=== PATIENT | male | born 1970 | race Caucasian/White ===

== ENCOUNTER 2020-08-29 17:32 | Inpatient (IN) | payer MEDICAID ==
[~2020-08-29] VITALS: Ht 180.3 cm; Wt 117.8 kg
[2020-08-29 19:00] LABS: Basophils # (auto) 0.1 10 ^3/uL (0-0.2); Basophils % (auto) 0.9 % (0.0-2.0); Eosinophils # (auto) 0.3 10 ^3/uL (0-0.8); Eosinophils % (auto) 3.2 % (0.0-7.0); Hemoglobin 16.4 g/dL (13.5-17.5); Lymphocytes # (auto) 2.3 10 ^3/uL (0.4-5.4); Lymphocytes % (auto) 27.8 % (10.0-50.0); Mean Corpuscular Hemoglobin 29.5 pg (28.0-32.0); Mean Corpuscular Hgb Conc. 34.1 g/dL (32.0-36.0); Mean Corpuscular Volume 86.7 fL (80.0-100.0); Monocytes # (auto) 0.7 10 ^3/uL (0-1.3); Monocytes % (auto) 9.1 % (0.0-12.0); Neutrophils # (auto) 4.8 10 ^3/uL (1.6-8.6); Nucleated Red Blood Cells % 0.2 %; Platelet Count (auto) 199 10^3/uL (140-450); Red Blood Cells 5.54 10^6/uL (4.5-5.90); Red Cell Distribution Width 13.5 % (11.8-14.3); White Blood Cell 8.2 10^3/uL (4.4-10.8)
[2020-08-29 19:17] LABS: Albumin 3.7 g/dL (3.4-5.0); Anion Gap 4 (5-15); Blood Urea Nitrogen 13 mg/dL (7-18); Calcium 8.8 mg/dL (8.5-10.1); Carbon Dioxide 29 mmol/L (21-32); Chloride 108 mmol/L (98-107); Glucose 89 mg/dL (74-106); Potassium 4.4 mmol/L (3.5-5.1); Sodium 141 mmol/L (136-145)
[2020-08-29 19:22] LABS: Alanine Aminotransferase 101 U/L (16-61); Alkaline Phosphatase 83 U/L (45-117); Aspartate Aminotransferase 43 U/L (15-37); BUN/Creatinine Ratio 11.3; Bilirubin, Total 1.2 mg/dL (0.2-1.0); GFR African American 86 mL/min; GFR Non-African American 71 mL/min; Total Protein 7.5 g/dL (6.4-8.2)
[2020-08-29 19:26] LABS: INR 0.99 (0.9-1.15); Partial Thromboplastin Time 30.9 sec (23.0-31.2)
[2020-08-29] MEDS ORDERED: MORPHINE SULF INJ 2 MG/ML SYRINGE 1ML IV ONE (20:30)
[2020-08-29] MEDS ORDERED: ONDANSETRON HCL 4 MG/2 ML VIAL IV ONE (20:30)
[2020-08-29] MEDS ORDERED: ONDANSETRON HCL 4 MG/2 ML VIAL IV PRN (22:00)
[2020-08-29] MEDS ORDERED: ATORVASTATIN 20 MG TAB PO SCH (22:00)
[2020-08-29] MEDS ORDERED: NITROGLYCERIN 0.4 MG SL TAB SL PRN (22:00)
[2020-08-29] MEDS ORDERED: ACETAMINOPHEN 325 MG TAB PO PRN (22:00)
[2020-08-29] MEDS ORDERED: TEMAZEPAM 15 MG CAP PO PRN (22:00)
[2020-08-29] MEDS: FAMOTIDINE 20 MG TAB PO SCH (22:16)
[2020-08-29 22:32] LABS: Cholesterol 172 mg/dL (< 200)
[2020-08-29 22:36] LABS: HDL Cholesterol 31 mg/dL (40-59); LDL Cholesterol 125 mg/dL (< 100); Triglycerides 183 mg/dL (< 150)
[2020-08-29 23:30] VITALS: BP 135/90
[2020-08-30] MEDS: MORPHINE SULF INJ 2 MG/ML SYRINGE 1ML IV PRN ×3 (00:22→20:01)
[2020-08-30] MEDS ORDERED: ALPR2TAB2 PO (02:05)
[2020-08-30 05:00] VITALS: BP 126/89
[2020-08-30 05:42] LABS: Basophils # (auto) 0 10 ^3/uL (0-0.2); Basophils % (auto) 0.5 % (0.0-2.0); Eosinophils # (auto) 0.2 10 ^3/uL (0-0.8); Eosinophils % (auto) 3.1 % (0.0-7.0); Hematocrit 44.7 % (41.0-53.0); Hemoglobin 15.1 g/dL (13.5-17.5); Lymphocytes # (auto) 1.9 10 ^3/uL (0.4-5.4); Lymphocytes % (auto) 28.3 % (10.0-50.0); Mean Corpuscular Hemoglobin 29.4 pg (28.0-32.0); Mean Corpuscular Hgb Conc. 33.8 g/dL (32.0-36.0); Mean Corpuscular Volume 87.1 fL (80.0-100.0); Monocytes # (auto) 0.6 10 ^3/uL (0-1.3); Monocytes % (auto) 8.4 % (0.0-12.0); Neutrophils % (auto) 59.7 % (37.0-80.0); Nucleated Red Blood Cells % 0.2 %; Platelet Count (auto) 170 10^3/uL (140-450); Red Blood Cells 5.13 10^6/uL (4.5-5.90); Red Cell Distribution Width 13.9 % (11.8-14.3); White Blood Cell 6.8 10^3/uL (4.4-10.8)
[2020-08-30 05:50] LABS: BUN/Creatinine Ratio 12.8; Calcium 8.8 mg/dL (8.5-10.1); Potassium 4.7 mmol/L (3.5-5.1)
[2020-08-30] MEDS ORDERED: ADENOSINE 102 MG in GIVE UN-DILUTED 0 ML IV STA (08:42)
[2020-08-30 09:00] VITALS: BP 135/88
[2020-08-30] MEDS: FAMOTIDINE 20 MG TAB PO SCH ×2 (09:36→21:51)
[2020-08-30] MEDS: ASPirin 81 mg TAB PO SCH (09:36)
[2020-08-30] MEDS: METOPROLOL TARTRATE 25 MG TAB PO SCH ×2 (11:00→21:51)
[2020-08-30 13:00] VITALS: BP 142/93
[2020-08-30] MEDS ORDERED: OPTISON 3ml Vial for INJ IV ONE (16:30)
[2020-08-30 16:54] VITALS: BP 133/97
[2020-08-30 21:48] VITALS: BP 132/81
[2020-08-30] MEDS: ATORVASTATIN 20 MG TAB PO SCH (21:50)
[2020-08-31 04:43] VITALS: BP 119/70
[2020-08-31] MEDS: MORPHINE SULF INJ 2 MG/ML SYRINGE 1ML IV PRN (05:36)
[2020-08-31 05:58] LABS: Alcohol, Urine < 3.0 mg/dL (0-10); Amphetamine Screen, Urine NEGATIVE (NEGATIVE); Barbiturate Scree,Urine NEGATIVE (NEGATIVE); Benzodiazephine Screen, Urine POSITIVE (NEGATIVE); Cannabinoid Screen, Urine NEGATIVE (NEGATIVE); Cocaine Screen, Urine NEGATIVE (NEGATIVE); Opiate Scree,Urine NEGATIVE (NEGATIVE); Phencyclidine Screen, Urine NEGATIVE (NEGATIVE)
[2020-08-31 06:55] LABS: Basophils # (auto) 0.1 10 ^3/uL (0-0.2); Basophils % (auto) 0.9 % (0.0-2.0); Eosinophils # (auto) 0.2 10 ^3/uL (0-0.8); Eosinophils % (auto) 3.6 % (0.0-7.0); Hemoglobin 15.4 g/dL (13.5-17.5); Lymphocytes # (auto) 1.4 10 ^3/uL (0.4-5.4); Lymphocytes % (auto) 22.3 % (10.0-50.0); Mean Corpuscular Hemoglobin 29.5 pg (28.0-32.0); Mean Corpuscular Hgb Conc. 34.3 g/dL (32.0-36.0); Monocytes # (auto) 0.5 10 ^3/uL (0-1.3); Monocytes % (auto) 8.6 % (0.0-12.0); Neutrophils % (auto) 64.6 % (37.0-80.0); Nucleated Red Blood Cells % 0.8 %; Platelet Count (auto) 168 10^3/uL (140-450); Red Blood Cells 5.24 10^6/uL (4.5-5.90); Red Cell Distribution Width 13.2 % (11.8-14.3); White Blood Cell 6.2 10^3/uL (4.4-10.8)
[2020-08-31 07:07] LABS: INR 1.03 (0.9-1.15); Partial Thromboplastin Time 30.5 sec (23.0-31.2)
[2020-08-31 07:08] LABS: BUN/Creatinine Ratio 19.5; Calcium 8.3 mg/dL (8.5-10.1); Potassium 4.2 mmol/L (3.5-5.1)
[2020-08-31 07:35] LABS: Urine Bacteria NONE SEEN /hpf (None Seen); Urine Blood Negative /uL (Negative); Urine Specific Gravity 1.022 (1.001-1.035); Urine WBC 1 /hpf (0 - 3)
[2020-08-31 08:52] VITALS: BP 135/94
[2020-08-31] MEDS ORDERED: SODIUM CHL 0.9% 0 ML ONE (09:55)
[2020-08-31] MEDS ORDERED: fentaNYL CITRATE 100 MCG/2 ML VL ONE (09:55)
[2020-08-31] MEDS ORDERED: VERAPAMIL 2.5MG/ML INJ 2ML VIAL IV ONE (09:55)
[2020-08-31] MEDS ORDERED: MIDAZOLAM HCL 1MG/1ML-2 ML VIAL ONE ×2 (09:55→10:18)
[2020-08-31] MEDS ORDERED: HEPARIN SODIUM (PORCINE) 5000 UNITS/ML 1ML VIAL ONE (09:55)
[2020-08-31] MEDS ORDERED: ANGIOMAX 250 MG VIAL IV ONE (09:55)
[2020-08-31] MEDS ORDERED: IOHEXOL 350 MG/ML 100ML IJ ONE (09:56)
[2020-08-31] MEDS ORDERED: LIDOCAINE 2%HCL (LOCAL ANESTH.) INJ 20ML MDV ONE (09:56)
[2020-08-31] MEDS: ASPirin 81 mg TAB PO SCH (10:00)
[2020-08-31] MEDS: FAMOTIDINE 20 MG TAB PO SCH ×2 (10:00→21:35)
[2020-08-31] MEDS: METOPROLOL TARTRATE 25 MG TAB PO SCH ×2 (10:00→21:35)
[2020-08-31 13:00] VITALS: BP 124/78
[2020-08-31 17:00] VITALS: BP 129/96
[2020-08-31] MEDS: ATORVASTATIN 20 MG TAB PO SCH (21:35)
[2020-08-31 21:58] VITALS: BP 134/81
[2020-09-01 05:00] VITALS: BP 115/78
[2020-09-01 09:00] VITALS: BP 134/98
[2020-09-01] MEDS: FAMOTIDINE 20 MG TAB PO SCH (09:16)
[2020-09-01] MEDS: METOPROLOL TARTRATE 25 MG TAB PO SCH (09:16)
[2020-09-01] MEDS ORDERED: ASPirin 81 mg TAB PO SCH (10:00)
[2020-09-01 12:49] VITALS: BP 142/94
[2020-09-01 13:25] VITALS: BP 142/94
== END 2020-09-01 15:30 | disposition home or self-care (01) | DRG 192 ==
LOC: ER 17:32 → TELE 21:58 → TELE-WESTW 23:23
PROVIDERS: ADMIT Nurse Practitioner; ATTEND Internal Medicine Nephrology
PROC: 4A023N7 Measurement of Cardiac Sampling and Pressure, Left Heart, Percutaneous Approach (ICD-10-PCS; principal; 2020-08-31)
PROC: B215YZZ Fluoroscopy of Left Heart using Other Contrast (ICD-10-PCS; 2020-08-31)
PROC: B211YZZ Fluoroscopy of Multiple Coronary Arteries using Other Contrast (ICD-10-PCS; 2020-08-31)
DX: R07.89 Other chest pain (principal); K76.0 Fatty (change of) liver, not elsewhere classified; E66.9 Obesity, unspecified; R55 Syncope and collapse; E78.5 Hyperlipidemia, unspecified; Z68.37 Body mass index [BMI] 37.0-37.9, adult; Z82.49 Family history of ischemic heart disease and other diseases of the circulatory system; Z83.3 Family history of diabetes mellitus; Z87.442 Personal history of urinary calculi; F32.9 Major depressive disorder, single episode, unspecified; Z87.891 Personal history of nicotine dependence; R74.01 Elevation of levels of liver transaminase levels; Z20.822 Contact with and (suspected) exposure to COVID-19; I12.9 Hypertensive chronic kidney disease with stage 1 through stage 4 chronic kidney disease, or unspecified chronic kidney disease; N18.2 Chronic kidney disease, stage 2 (mild)
CPT/HCPCS: 36415; 70450; 71046; 76705; 78452; 80048; 80053; 80061; 80307; 80320; 81001; 83036; 83880; 84443; 84484; 85025; 85379; 85610; 85730; 87426; 93005; 93017; 93306; 93458; 93886; 95819; 96374; 96375; 99152; G0378; J0153; J2250; J2405; Q9956

== ENCOUNTER → 2020-10-23 | Outpatient (CLI) | payer MEDICAID ==
[~2020-10-23] MED LIST: ALPR2TAB2 PO
== END | disposition home or self-care (01) ==
LOC: LAB 08:54
PROVIDERS: ATTEND Internal Medicine
DX: Z12.11 Encounter for screening for malignant neoplasm of colon (principal); I10 Essential (primary) hypertension; E78.5 Hyperlipidemia, unspecified
CPT/HCPCS: 36415; 82306; 84153; 85652

== ENCOUNTER → 2021-06-06 | Outpatient (CLI) | payer MEDICAID ==
[2021-06-06 13:10] LABS: Albumin 3.5 g/dL (3.4-5.0); BUN/Creatinine Ratio 13.1; Calcium 8.7 mg/dL (8.5-10.1); Potassium 3.8 mmol/L (3.5-5.1)
[2021-06-06 13:13] LABS: Bilirubin, Total 1.6 mg/dL (0.2-1.0); Total Protein 7.5 g/dL (6.4-8.2)
== END | disposition home or self-care (01) ==
LOC: LAB 09:41
PROVIDERS: ATTEND Internal Medicine
DX: J44.9 Chronic obstructive pulmonary disease, unspecified (principal); E78.5 Hyperlipidemia, unspecified; R73.9 Hyperglycemia, unspecified
CPT/HCPCS: 36415; 80053; 83036; 84443

== ENCOUNTER → 2021-07-24 | Outpatient (CLI) | payer MEDICAID | END | disposition home or self-care (01) | LOC: LAB 07:07 | PROVIDERS: ATTEND Internal Medicine Pulmonary Disease | DX: Z01.812 Encounter for preprocedural laboratory examination (principal); Z20.822 Contact with and (suspected) exposure to COVID-19; R06.02 Shortness of breath; R06.00 Dyspnea, unspecified | CPT/HCPCS: 36415 ==

== ENCOUNTER → 2021-07-24 | Outpatient (CLI) | payer MEDICAID ==
[~2021-07-24] MED LIST changes: +ALBUTEROL SULF 2.5 MG/0.5ML(0.5%) NEB SOLN ONE
== END | disposition home or self-care (01) ==
LOC: RT 09:19
PROVIDERS: ATTEND Internal Medicine Pulmonary Disease
DX: J44.9 Chronic obstructive pulmonary disease, unspecified (principal)
CPT/HCPCS: 94060; 94727; 94729

== ENCOUNTER → 2022-02-12 | Outpatient (CLI) | payer MEDICAID ==
[~2022-02-12] MED LIST changes: -ALBUTEROL SULF 2.5 MG/0.5ML(0.5%) NEB SOLN ONE
[2022-02-12 11:39] LABS: Cholesterol 211 mg/dL (< 200)
[2022-02-12 11:42] LABS: HDL Cholesterol 35 mg/dL (40-59); LDL Cholesterol 153 mg/dL (< 100); Triglycerides 155 mg/dL (< 150)
== END | disposition home or self-care (01) ==
LOC: LAB 10:04
PROVIDERS: ATTEND Internal Medicine
DX: E55.9 Vitamin D deficiency, unspecified (principal); R73.03 Prediabetes; E78.5 Hyperlipidemia, unspecified
CPT/HCPCS: 36415; 80061; 82043; 82306; 83036; 84403

== ENCOUNTER → 2022-04-28 | Outpatient (CLI) | payer MEDICAID | END | disposition home or self-care (01) | LOC: XYW 08:27 | PROVIDERS: ATTEND Internal Medicine Pulmonary Disease | DX: I08.2 Rheumatic disorders of both aortic and tricuspid valves (principal); R06.02 Shortness of breath | CPT/HCPCS: 93306 ==

== ENCOUNTER → 2022-09-26 | Day surgery (SDC) | payer MEDICAID ==
[2022-09-24 09:46] LABS: Basophils # (auto) 0.1 10 ^3/uL (0-0.2); Basophils % (auto) 1.1 % (0.0-2.0); Eosinophils # (auto) 0.2 10 ^3/uL (0-0.8); Eosinophils % (auto) 4.3 % (0.0-7.0); Hematocrit 43.4 % (41.0-53.0); Hemoglobin 14.7 g/dL (13.5-17.5); Lymphocytes # (auto) 1.6 10 ^3/uL (0.4-5.4); Lymphocytes % (auto) 27.4 % (10.0-50.0); Mean Corpuscular Hemoglobin 28.5 pg (28.0-32.0); Mean Corpuscular Hgb Conc. 33.8 g/dL (32.0-36.0); Mean Corpuscular Volume 84.5 fL (80.0-100.0); Monocytes # (auto) 0.5 10 ^3/uL (0-1.3); Monocytes % (auto) 8.6 % (0.0-12.0); Neutrophils # (auto) 3.3 10 ^3/uL (1.6-8.6); Neutrophils % (auto) 58.6 % (37.0-80.0); Nucleated Red Blood Cells % 0.3 %; Red Blood Cells 5.14 10^6/uL (4.5-5.90); Red Cell Distribution Width 14.1 % (11.8-14.3); White Blood Cell 5.7 10^3/uL (4.4-10.8)
[2022-09-24 10:02] LABS: INR 1.03 (0.9-1.15); Partial Thromboplastin Time 32.7 sec (24.6-33.4)
[2022-09-24 10:30] LABS: Albumin 3.8 g/dL (3.4-5.0)
[2022-09-24 10:33] LABS: BUN/Creatinine Ratio 7.8 (10.0-20.0); Bilirubin, Total 1.3 mg/dL (0.2-1.0); Total Protein 7.2 g/dL (6.4-8.2)
[~2022-09-26] VITALS: Ht 177.8 cm; Wt 97.5 kg
[~2022-09-26] MED LIST changes: +ALBU108A14 IN; +ALPR1TAB7 PO; +ATOR10TA PO; +DexAMETHasone SOD PHOS 10MG/1ML VIAL INJ ONE; +FLUT1AER17 IN; +IPRA0.00 IN; +LAMO100T44 PO; +MEPERIDINE HCL (25 MG/ML) 1ML VIAL ONE; +MIDAZOLAM HCL 2MG/2ML 2ml VIAL (1mg/ml) ONE; +PANT40TA2 PO; +PROPOFOL 10 MG/ML 20 ML IV ONE; +QUET50TA PO; +SEMA4INJ SC; +VALS320T15 PO; +fentaNYL CITRATE 100 MCG/2 ML VL ONE
[2022-09-26 15:30] VITALS: BP 117/71
== END | disposition home or self-care (01) ==
LOC: GI 13:02
PROVIDERS: ATTEND Internal Medicine Gastroenterology
DX: R19.7 Diarrhea, unspecified (principal); K63.5 Polyp of colon; K62.1 Rectal polyp; K64.8 Other hemorrhoids; I10 Essential (primary) hypertension; F41.9 Anxiety disorder, unspecified; Z80.0 Family history of malignant neoplasm of digestive organs; Z83.3 Family history of diabetes mellitus; Z87.891 Personal history of nicotine dependence; Z79.899 Other long term (current) drug therapy; Z98.890 Other specified postprocedural states
CPT/HCPCS: 36415; 45380; 45385; 80053; 85025; 85610; 85730; J1100; J2175; J2250; J2704; J3010; J7030

== ENCOUNTER 2022-10-03 17:21 | Inpatient (IN) | payer MEDICAID ==
[~2022-10-03] VITALS: Ht 180.3 cm; Wt 99.6 kg
[~2022-10-03 17:21] MED LIST changes: -DexAMETHasone SOD PHOS 10MG/1ML VIAL INJ ONE; -MEPERIDINE HCL (25 MG/ML) 1ML VIAL ONE; -MIDAZOLAM HCL 2MG/2ML 2ml VIAL (1mg/ml) ONE; -PROPOFOL 10 MG/ML 20 ML IV ONE; -fentaNYL CITRATE 100 MCG/2 ML VL ONE
[2022-10-03 18:14] LABS: Basophils # (auto) 0 10 ^3/uL (0-0.2); Basophils % (auto) 0.4 % (0.0-2.0); Eosinophils # (auto) 0.3 10 ^3/uL (0-0.8); Eosinophils % (auto) 3.2 % (0.0-7.0); Hematocrit 42.4 % (41.0-53.0); Hemoglobin 14.4 g/dL (13.5-17.5); Lymphocytes # (auto) 1.9 10 ^3/uL (0.4-5.4); Lymphocytes % (auto) 17.9 % (10.0-50.0); Mean Corpuscular Hemoglobin 28.7 pg (28.0-32.0); Mean Corpuscular Hgb Conc. 34.1 g/dL (32.0-36.0); Mean Corpuscular Volume 84.1 fL (80.0-100.0); Monocytes # (auto) 0.9 10 ^3/uL (0-1.3); Monocytes % (auto) 7.9 % (0.0-12.0); Neutrophils # (auto) 7.6 10 ^3/uL (1.6-8.6); Neutrophils % (auto) 70.6 % (37.0-80.0); Nucleated Red Blood Cells % 0.2 %; Red Blood Cells 5.04 10^6/uL (4.5-5.90); White Blood Cell 10.7 10^3/uL (4.4-10.8)
[2022-10-03 18:26] LABS: Albumin 3.4 g/dL (3.4-5.0); Calcium 8.9 mg/dL (8.5-10.1); Potassium 3.6 mmol/L (3.5-5.1)
[2022-10-03 18:31] LABS: BUN/Creatinine Ratio 11.7 (10.0-20.0); Bilirubin, Total 1.4 mg/dL (0.2-1.0); Total Protein 7.4 g/dL (6.4-8.2)
[2022-10-03 18:44] LABS: Urine Bacteria FEW /hpf (None Seen); Urine Blood Negative /uL (Negative); Urine Hyaline Cast FEW /lpf (0 - 2); Urine Mucus FEW (None Seen); Urine Specific Gravity 1.023 (1.001-1.035); Urine WBC 13 /hpf (0 - 3)
[2022-10-03] MEDS ORDERED: MORPHINE SULFATE 4 MG/ML SYR/VIAL IV ONE (18:45)
[2022-10-03] MEDS ORDERED: ONDANSETRON HCL 4 MG/2 ML VIAL IV ONE (18:45)
[2022-10-03] MEDS ORDERED: cefTRIAXone 1GM/50ML D5W 50 ML IV ONE (20:00)
[2022-10-03] MEDS ORDERED: HYDROmorphone HCL 2 MG/ML VL/or syr IV ONE (22:00)
[2022-10-03] MEDS ORDERED: ALBUTEROL SULF 2.5 MG/0.5ML(0.5%) NEB SOLN NEB PRN (22:45)
[2022-10-03] MEDS ORDERED: DOCUSATE SOD 100 MG CAP PO PRN (22:45)
[2022-10-03] MEDS ORDERED: IBUPROFEN 600 MG TAB PO PRN (22:45)
[2022-10-03] MEDS ORDERED: HYDROcodone-ACET 10/325MG TAB PO ONE (23:45)
[2022-10-04] MEDS ORDERED: MORPHINE SULFATE INJ 2 MG/ml SYRG IV PRN
[2022-10-04] MEDS ORDERED: NITROGLYCERIN 0.4 MG SL TAB SL PRN
[2022-10-04] MEDS: SODIUM CHLORIDE 0.9% 1,000 ML IV SCH ×2 (00:47→03:43)
[2022-10-04 03:00] VITALS: BP 74/40
[2022-10-04] MEDS: SODIUM CHLORIDE 0.9% 500 ML IV ONE ×2 (03:10→03:38)
[2022-10-04] MEDS ORDERED: MIDODRINE HCL 10 MG TAB PO ONE (03:15)
[2022-10-04] MEDS: POTASSIUM CHL 20MEQ/100ML 100 ML IV SCH ×2 (03:16→03:41)
[2022-10-04] MEDS ORDERED: NOREPINEPHRINE 8 MG/250ML KIT 250 ML IV SCH (04:15)
[2022-10-04 04:46] LABS: Basophils # (auto) 0 10 ^3/uL (0-0.2); Basophils % (auto) 0.3 % (0.0-2.0); Eosinophils # (auto) 0.1 10 ^3/uL (0-0.8); Eosinophils % (auto) 1.2 % (0.0-7.0); Hematocrit 37.9 % (41.0-53.0); Hemoglobin 12.8 g/dL (13.5-17.5); Lymphocytes % (auto) 11.3 % (10.0-50.0); Mean Corpuscular Hemoglobin 28.7 pg (28.0-32.0); Mean Corpuscular Hgb Conc. 33.7 g/dL (32.0-36.0); Mean Corpuscular Volume 85.1 fL (80.0-100.0); Monocytes # (auto) 0.9 10 ^3/uL (0-1.3); Monocytes % (auto) 10.7 % (0.0-12.0); Neutrophils # (auto) 6.6 10 ^3/uL (1.6-8.6); Neutrophils % (auto) 76.5 % (37.0-80.0); Red Blood Cells 4.45 10^6/uL (4.5-5.90); Red Cell Distribution Width 13.8 % (11.8-14.3); White Blood Cell 8.6 10^3/uL (4.4-10.8)
[2022-10-04 04:55] LABS: Albumin 2.9 g/dL (3.4-5.0); BUN/Creatinine Ratio 7.9 (10.0-20.0); Calcium 8.5 mg/dL (8.5-10.1); Potassium 3.4 mmol/L (3.5-5.1)
[2022-10-04 04:58] LABS: Total Protein 6.4 g/dL (6.4-8.2)
[2022-10-04] MEDS: ONDANSETRON HCL 4 MG/2 ML VIAL IV PRN ×3 (07:56→18:29)
[2022-10-04] MEDS: HYDROmorphone HCL 2 MG/ML VL/or syr IV PRN ×3 (07:57→18:30)
[2022-10-04] MEDS: cefTRIAXone 1GM/50ML D5W 50 ML IV SCH (09:00)
[2022-10-04] MEDS ORDERED: SODIUM CHLORIDE 0.9% 1,000 ML IV ONE (14:15)
[2022-10-04] MEDS: TAMSULOSIN HYDROCHLORIDE 0.4 MG CAP PO SCH (18:29)
[2022-10-04] MEDS: TEMAZEPAM 15 MG CAP PO PRN (21:11)
[2022-10-05 06:26] LABS: Basophils # (auto) 0 10 ^3/uL (0-0.2); Basophils % (auto) 0.6 % (0.0-2.0); Eosinophils # (auto) 0.3 10 ^3/uL (0-0.8); Eosinophils % (auto) 4.8 % (0.0-7.0); Hematocrit 36.7 % (41.0-53.0); Hemoglobin 12.8 g/dL (13.5-17.5); Lymphocytes # (auto) 1.3 10 ^3/uL (0.4-5.4); Lymphocytes % (auto) 20.5 % (10.0-50.0); Mean Corpuscular Hemoglobin 29.3 pg (28.0-32.0); Mean Corpuscular Volume 83.8 fL (80.0-100.0); Monocytes # (auto) 0.7 10 ^3/uL (0-1.3); Monocytes % (auto) 11.2 % (0.0-12.0); Neutrophils # (auto) 4.1 10 ^3/uL (1.6-8.6); Neutrophils % (auto) 62.9 % (37.0-80.0); Nucleated Red Blood Cells % 0.1 %; Red Blood Cells 4.38 10^6/uL (4.5-5.90); Red Cell Distribution Width 13.8 % (11.8-14.3); White Blood Cell 6.5 10^3/uL (4.4-10.8)
[2022-10-05 06:44] LABS: BUN/Creatinine Ratio 13.2 (10.0-20.0); Calcium 8.2 mg/dL (8.5-10.1); Phosphorus 2.4 mg/dL (2.5-4.90); Uric Acid 5.1 mg/dL (3.5-7.2)
[2022-10-05] MEDS: SODIUM CHLORIDE 0.9% 1,000 ML IV SCH (07:56)
[2022-10-05] MEDS: cefTRIAXone 1GM/50ML D5W 50 ML IV SCH (09:12)
[2022-10-05 15:54] VITALS: BP 108/63
[2022-10-05 17:00] VITALS: BP 108/63
[2022-10-05] MEDS: TAMSULOSIN HYDROCHLORIDE 0.4 MG CAP PO SCH (17:17)
[2022-10-05] MEDS: HYDROmorphone HCL 2 MG/ML VL/or syr IV PRN ×2 (17:19→21:22)
[2022-10-05 18:56] LABS: Urine Bacteria NONE SEEN /hpf (None Seen); Urine Blood 2+ /uL (Negative); Urine Mucus FEW (None Seen); Urine Specific Gravity 1.014 (1.001-1.035); Urine WBC 12 /hpf (0 - 3)
[2022-10-05 19:20] LABS: Protein, Urine 50.4 mg/dL (0.0-11.9)
[2022-10-05] MEDS: TEMAZEPAM 15 MG CAP PO PRN (21:18)
[2022-10-05 22:00] VITALS: BP 111/58
[2022-10-06] MEDS: SODIUM CHLORIDE 0.9% 1,000 ML IV SCH (03:54)
[2022-10-06] MEDS: HYDROmorphone HCL 2 MG/ML VL/or syr IV PRN ×3 (04:13→14:41)
[2022-10-06 05:00] VITALS: BP 143/68
[2022-10-06 07:30] VITALS: BP 111/75
[2022-10-06 09:00] VITALS: BP 111/75
[2022-10-06] MEDS: cefTRIAXone 1GM/50ML D5W 50 ML IV SCH (09:09)
[2022-10-06] MEDS ORDERED: TAM04C PO (12:44)
[2022-10-06] MEDS ORDERED: AUG875T PO (12:44)
[2022-10-06 13:00] VITALS: BP 136/76
[2022-10-06 13:49] VITALS: BP 136/76
[2022-10-06 17:00] VITALS: BP 116/76
== END 2022-10-06 18:02 | disposition home or self-care (01) | DRG 720 ==
LOC: ER 17:21 → OVERFLOW 23:58 → TELE-WESTW 10-05 15:12
PROVIDERS: ADMIT Nurse Practitioner Family; ATTEND Internal Medicine
DX: A41.9 Sepsis, unspecified organism (principal); N17.0 Acute kidney failure with tubular necrosis; R65.21 Severe sepsis with septic shock; G92.8 Other toxic encephalopathy; N20.0 Calculus of kidney; I10 Essential (primary) hypertension; N39.0 Urinary tract infection, site not specified; F32.A Depression, unspecified; R26.81 Unsteadiness on feet; R34 Anuria and oliguria; R33.9 Retention of urine, unspecified; Z83.3 Family history of diabetes mellitus; Z79.899 Other long term (current) drug therapy; Z87.442 Personal history of urinary calculi; Z87.891 Personal history of nicotine dependence
CPT/HCPCS: 36415; 74176; 80048; 80053; 81001; 82570; 83605; 83690; 84100; 84156; 84300; 84550; 85025; 87081; 87086; 96365; 96375; G0378; J0696; J2405; J3480

== ENCOUNTER → 2022-10-08 | Outpatient (CLI) | payer MEDICAID ==
[~2022-10-08] MED LIST changes: -ALPR1TAB7 PO; +AUG875T PO; +TAM04C PO
== END | disposition home or self-care (01) ==
LOC: LAB 11:50
PROVIDERS: ATTEND Internal Medicine
DX: R07.9 Chest pain, unspecified (principal)
CPT/HCPCS: 36415; 84484; 85379

== ENCOUNTER → 2023-03-27 | Outpatient (CLI) | payer MEDICAID ==
[~2023-03-27] MED LIST changes: -TAM04C PO; +TAMS-35 PO; +VALS320T PO; -VALS320T15 PO
[2023-03-27 11:36] LABS: Anion Gap 6 (5-15); Carbon Dioxide 28 mmol/L (20-30); Chloride 104 mmol/L (98-107); Potassium 4.3 mmol/L (3.5-5.1); Sodium 138 mmol/L (136-145)
[2023-03-27 11:42] LABS: BUN/Creatinine Ratio 7.9 (10.0-20.0); Blood Urea Nitrogen 10 mg/dL (9-23); Glucose 97 mg/dL (74-106)
[2023-03-27 11:49] LABS: Creatinine, Urine 237.82 mg/dL (30.0-125.0)
[2023-03-28 06:06] LABS: PSA Free 0.69 ng/mL; Prostate Specific Antigen 4.9 ng/mL (0.0-4.0)
== END | disposition home or self-care (01) ==
LOC: LAB 10:46
PROVIDERS: ATTEND Internal Medicine
DX: E11.9 Type 2 diabetes mellitus without complications (principal)
CPT/HCPCS: 36415; 80048; 82043; 82570; 84153; 84154

== ENCOUNTER → 2023-07-09 | Outpatient (CLI) | payer MEDICAID ==
[2023-07-09 08:55] LABS: Basophils # (auto) 0.1 10 ^3/uL (0-0.2); Basophils % (auto) 0.8 % (0.0-2.0); Eosinophils # (auto) 0.2 10 ^3/uL (0-0.8); Eosinophils % (auto) 2.8 % (0.0-7.0); Hematocrit 44.4 % (41.0-53.0); Hemoglobin 14.8 g/dL (13.5-17.5); Lymphocytes # (auto) 1.5 10 ^3/uL (0.4-5.4); Lymphocytes % (auto) 24.7 % (10.0-50.0); Mean Corpuscular Hemoglobin 28.1 pg (28.0-32.0); Mean Corpuscular Hgb Conc. 33.4 g/dL (32.0-36.0); Mean Corpuscular Volume 84.2 fL (80.0-100.0); Monocytes # (auto) 0.4 10 ^3/uL (0-1.3); Monocytes % (auto) 7.3 % (0.0-12.0); Neutrophils # (auto) 3.9 10 ^3/uL (1.6-8.6); Neutrophils % (auto) 64.4 % (37.0-80.0); Nucleated Red Blood Cells % 0.3 %; Red Blood Cells 5.28 10^6/uL (4.5-5.90); Red Cell Distribution Width 14.2 % (11.8-14.3); White Blood Cell 6.1 10^3/uL (4.4-10.8)
[2023-07-09 09:23] LABS: Triglycerides 117 mg/dL (< 150)
[2023-07-09 09:24] LABS: LDL Cholesterol 161 mg/dL (< 100)
[2023-07-09 09:25] LABS: HDL Cholesterol 34 mg/dL (40-59)
[2023-07-09 09:26] LABS: Cholesterol 210 mg/dL (< 200)
[2023-07-10 08:06] LABS: PSA Free 0.64 ng/mL; Prostate Specific Antigen 5.4 ng/mL (0.0-4.0)
== END | disposition home or self-care (01) ==
LOC: LAB 08:28
PROVIDERS: ATTEND Internal Medicine
DX: E11.9 Type 2 diabetes mellitus without complications (principal); I10 Essential (primary) hypertension
CPT/HCPCS: 36415; 80061; 82306; 83036; 84153; 84154; 84443; 85025

== ENCOUNTER → 2023-08-07 | Outpatient (CLI) | payer MEDICAID ==
[2023-08-07 10:06] LABS: Albumin 4.3 g/dL (3.2-4.8); Bilirubin, Direct 0.3 mg/dL (<0.3); Total Protein 6.9 g/dL (5.7-8.2)
== END | disposition home or self-care (01) ==
LOC: LAB 09:19
PROVIDERS: ATTEND Internal Medicine
DX: E78.5 Hyperlipidemia, unspecified (principal)
CPT/HCPCS: 36415; 80076

== ENCOUNTER 2024-05-27 14:42 | Emergency (ER) | payer MEDICAID ==
[~2024-05-27] VITALS: Ht 152.4 cm; Wt 106.6 kg
[2024-05-27 15:10] VITALS: BP 141/97; PULSE 78; RESP 16; O2SAT 97
--- NOTE | 2024-05-27 15:22 | ED.PDOC ---
Musculoskeletal HPI Comments 54M presents to the ER w/ no prior Hx associated to the c/c of LE. Pt's reports on having LE swelling for 2 weeks on his right leg. Pt notes that he did go to his PCP and that they are worried about only his right LE is swollen. His PCP told him to go to the ER right now and get an US done just to make sure that he does not have a blood clot. Pt does have varicose veins. PMHx of Depression, HTN, and Kidney Stones. Social Hx of quit tobacco use 4 years ago and denies alcohol and substance use. Denies chills, fever, N/V/D, SOB, CP or other associated symptom's, modifiers, or recent injuries or sick contact at this time. Chief Complaint: Lower Extremity Time Seen by MD: 15:05 Primary Care Provider: EN Reviewed Notes: Nurses Notes, Medications, Allergies Allergies: Coded Allergies: Diphenhydramine (Verified Adverse Reaction, Mild, Restless legs and irritability, 10/05/22) Home Meds Active Scripts Amoxicillin & Pot Clavulanate (AUGMENTIN TABLET) 875 Mg Tb, 875 MG PO BID, #14 TAB Prov:KENYATTA SENA MD 10/06/22 Tamsulosin Hcl (Flomax) 0.4 Mg Cap, 1 CAP PO DAILY, #90 CAP 3 Refills Prov:KENYATTA SENA MD 10/06/22 Reported Medications Semaglutide (Ozempic) 4 Mg/3 Ml Inj, 4 MG SC QWEEKLY, INJ 09/24/22 Atorvastatin Calcium (Lipitor) 10 Mg Tab, 10 MG PO DAILY, TAB 09/24/22 Valsartan (Diovan) 320 Mg Tab, 160 MG PO DAILY, TAB 09/24/22 Pantoprazole Sodium Sesquihydr (Protonix) 40 Mg Tab, 40 MG PO DAILY, #30 TAB 09/24/22 Ipratropium-Albuterol (Ipratropium Ragan/Albut) 1 Soni Soni, 1 SONI IN, ML 09/24/22 Dpzqyylnzjp-Tthevqoyteju-Efjhn (Trelegy Ellipta 200-62.5-25 Mcg/INH) 1 Aer Aer, 1 AER IN, AER 09/24/22 Albuterol Sulfate (Proair Digihaler) 108 Mcg/Act Aer, 108 MCG IN, AER 09/24/22 Lamotrigine (Lamotrigine) 100 Mg Tab, 100 MG PO DAILY, TAB 09/24/22 Quetiapine Fumerate (Seroquel) 50 Mg Tab, 100 MG PO BID, TAB 09/24/22 Alprazolam (Xanax) 2 Mg Tab, 1 TAB PO TID PRN for ANXIETY, #90 TAB 08/30/20 Information Source: Patient, Spouse Mode of Arrival: Ambulatory Location: Right Extremity Location: Leg Timing: Weeks Prehospital treatment: None Severity: Moderate Able to Move Extremity: Yes Bear Weight: Limited Pain: Mild Hand Dominance: Right Mechanism: Unknown Circumstances: Unknown Onset of Symptoms: Spontaneous Symptoms: Swelling DVT Risk Factors: NONE Last Tetanus: Unknown Associated signs and symptoms: Swelling Past Medical History PAST MEDICAL HISTORY: Depression, HTN, Kidney Stones Surgical History: Denies all surgeries Family History Family History: Reviewed,noncontributory to illness, Unknown Social History Smoker: Non-Smoker, Quit Greater Than 1 Year Alcohol: Denies ETOH Use Drugs: Denies Drug Use Lives In: Home Constitutional: denies: chills, diaphoresis, fatigue, fever, malaise, sweats, weakness, others EENTM: denies: blurred vision, double vision, ear bleeding, ear discharge, ear drainage, ear pain, ear ringing, eye pain, eye redness, hearing loss, mouth pain, mouth swelling, nasal discharge, nose bleeding, nose congestion, nose pain, photophobia, tearing, throat pain, throat swelling, voice changes, others Respiratory: denies: cough, hemoptysis, orthopnea, SOB at rest, shortness of breath, SOB with excertion, stridor, wheezing, others Cardiovascular: reports: edema; denies: chest pain, dizzy spells, diaphoresis, Dyspnea on exertion, irregular heart beat, left arm pain, lightheadedness, palpitations, PND, syncope, others Gastrointestinal: denies: abdomen distended, abdominal pain, blood streaked bowels, constipated, diarrhea, dysphagia, difficulty swallowing, hematemesis, melena, nausea, poor appetite, poor fluid intake, rectal bleeding, rectal pain, vomiting, others Genitourinary: denies: burning, dysuria, flank pain, frequency, hematuria, in continence, penile discharge, penile sore, pain, testicle pain, testicle swelling, urgency, others Neurological: denies: dizziness, fainting, headache, left sided numbness, left sided weakness, numbness, paresthesia, pre-existing deficit, right sided numbness, right sided weakness, seizure, speech problems, tingling, tremors, weakness, others Musculoskeletal: denies: back pain, gout, joint pain, joint swelling, muscle pain, muscle stiffness, neck pain, others Integumetry: denies: bruises, change in color, change in hair/nails, dryness, laceration, lesions, lumps, rash, wounds, others Allergic/Immunocompromised: denies: Difficulty Healing, Frequent Infections, Hives, Itching, others Hematologic/Lymphatic: denies: anemia, blood clots, easy bleeding, easy bruising, swollen glands, others Endocrine: denies: excessive hunger, excessive sweating, excessive thirst, excessive urination, flushing, intolerance to cold, intolerance to heat, unexplained weight gain, unexplained weight loss, others Psychiatric: denies: anxiety, bipolar disorder, depression, hopeless, panic disorder, schizophrenia, sleepless, suicidal, others All Other Systems: Reviewed and Negative Physical Exam Exam Comments Varicose veins General Appearance: No Apparent Distress, Normal HEENT: Normal ENT Inspection, Pharynx Normal, TMs Normal Neck: Full Range of Motion, Non-Tender, Normal, Normal Inspection Respiratory: Chest Non-Tender, Lungs Clear, No Accessory Muscle Use, No Respiratory Distress, Normal Breath Sounds Cardiovascular: No Edema, No JVD, No Murmur, No Gallop, Normal Peripheral Pulses, Regular Rate/Rhythm Breast Exam: Deferred Gastrointestinal: No Organomegaly, Non Tender, No Pulsatile Mass, Normal Bowel Sounds, Soft Genitalia: Deferred Pelvic: Deferred Rectal: Deferred Extremities: No calf tenderness, Normal capillary refill, Normal inspection, Normal range of motion, Non-tender, No pedal edema Musculoskeletal : Apperance: Normal Neurologic: Alert, ordering machine operator II-XII nml as Tested, No Motor Deficits, Normal Affect, Normal Mood, No Sensory Deficits Cerebellar Function: Normal Reflexes: Normal Skin: Dry, Normal Color, Warm Lymphatic: No Adenopathy Was a procedure done? Was a procedure done?: No Differential Diagnosis EXT Differential Diagnosis: Cellulitis, CHF, Deep Vein Thrombosis, Compartment Syndrome, Sprain, Contusion, Strain, Arthritis, Other (venous insufficiency) X-Ray, Labs, Meds, VS Vital Signs Date Time Temp Pulse Resp B/P (MAP) Pulse Ox O2 Delivery O2 Flow Rate FiO2 05/27/24 15:10 78 16 141/97 (112) 97 05/27/24 15:10 78 16 97 Room Air* 0 21 05/27/24 14:55 98.4 82 20 150/92 (111) 97 Time of 1ST Reevaluation: 15:35 Reevaluation 1ST: Unchanged Patient Education/Counseling: Diagnosis, Treatment, Prognosis, Need For Follow Up Family Education/Counseling: Diagnosis, Treatment, Prognosis, Need For Follow Up, No Family Present Additional Information - I reviewed the following notes from patient's past medical encounters:10/03/22 - The following tests were ordered, and results were reviewed by me: US - Additional information was gathered from interviewing the following independent Historian: Family - I reviewed and agreed with the following test results read by other provider: US - I discussed treatments and results with medical personnel and: (consultants, family) pt does not have a dvt. he does not have celllulitis, nor any pain. he has varicosities and may have venous insufficiency , causing dependent edema. he is stable for discharge Departure 1 Departure Time of Disposition: 16:31 Impression: Primary Impression: Varicosities of leg Qualified Codes: I83.91 - Asymptomatic varicose veins of right lower extremity Additional Impression: Stasis edema Qualified Codes: I87.301 - Chronic venous hypertension (idiopathic) without complications of right lower extremity Disposition: 01 HOME / SELF CARE / HOMELESS Condition: Good Discharged With: Self, Relative, Spouse Critical Care Note Critical Care Time?: No Stability Stability form required: No I personally scribed for BERTO MARCUS MD ([email or web address]) on 05/27/24 at 15:22. Electronically submitted by Gregorio Xie ([email or web address]). BERTO MARCUS MD May 27, 2024 15:22
--- NOTE | 2024-05-27 16:14 | DVH ---
RIGHT LOWER EXTREMITY VENOUS DOPPLER CLINICAL HISTORY: r/o dvt TECHNIQUE: Right lower extremity venous doppler study was performed. COMPARISON: None FINDINGS: The right common femoral, superficial femoral, popliteal, posterior tibial veins appear patent with normal augmentation, phasicity, compressibility and color-flow. . The left common femoral vein appears patent. IMPRESSION: 1. No sonographic evidence of DVT in the right leg. HS:Y
== END 2024-05-27 16:50 | disposition home or self-care (01) ==
LOC: ER 14:42
DX: I87.301 Chronic venous hypertension (idiopathic) without complications of right lower extremity (principal); I10 Essential (primary) hypertension; F32.A Depression, unspecified; Z87.891 Personal history of nicotine dependence; Z79.899 Other long term (current) drug therapy; Z88.8 Allergy status to other drugs, medicaments and biological substances
CPT/HCPCS: 93971

== ENCOUNTER → 2024-09-02 | Outpatient (CLI) | payer MEDICAID ==
[~2024-09-02] MED LIST changes: +ALBUTEROL SULF 2.5 MG/0.5ML(0.5%) NEB SOLN ONE
== END | disposition home or self-care (01) ==
LOC: RT 14:32
PROVIDERS: ATTEND Internal Medicine Pulmonary Disease
DX: Z87.891 Personal history of nicotine dependence (principal)
CPT/HCPCS: 94060; 94618; 94727; 94729

== ENCOUNTER 2024-11-30 14:15 | Outpatient (CLI) | payer MEDICAID ==
[~2024-11-30 14:15] MED LIST changes: -ALBUTEROL SULF 2.5 MG/0.5ML(0.5%) NEB SOLN ONE
[2024-11-30 14:55] LABS: Hematocrit 44.1 % (41.0-53.0); Hemoglobin 15.0 g/dL (13.5-17.5); Mean Corpuscular Hemoglobin 28.5 pg (28.0-32.0); Mean Corpuscular Volume 83.6 fL (80.0-100.0); Nucleated Red Blood Cells % 0.3 %
[2024-11-30 15:21] LABS: Alanine Aminotransferase 18 U/L (7-40); Albumin 4.7 g/dL (3.2-4.8); Alkaline Phosphatase 64 U/L (46-116); Anion Gap 8 (5-15); BUN/Creatinine Ratio 7.6 (10.0-20.0); Blood Urea Nitrogen 12 mg/dL (9-23); Calcium 9.9 mg/dL (8.7-10.4); Carbon Dioxide 27 mmol/L (20-31); Chloride 106 mmol/L (98-107); Cholesterol 161 mg/dL (< 200); Glucose 88 mg/dL (74-106); Potassium 4.2 mmol/L (3.5-5.1); Sodium 141 mmol/L (136-145); Total Protein 7.3 g/dL (5.7-8.2); Triglycerides 93 mg/dL (< 150)
[2024-11-30 15:22] LABS: Bilirubin, Total 1.5 mg/dL (0.2-1.0); HDL Cholesterol 36 mg/dL (40-59)
== END 2024-11-30 17:00 | disposition home or self-care (01) ==
LOC: LAB 14:15
PROVIDERS: ATTEND Internal Medicine
DX: E04.1 Nontoxic single thyroid nodule (principal); E78.5 Hyperlipidemia, unspecified; R73.03 Prediabetes; R97.20 Elevated prostate specific antigen [PSA]
CPT/HCPCS: 36415; 80053; 80061; 83036; 84153; 85025

== ENCOUNTER 2025-04-18 11:31 | Inpatient (IN) | payer MEDICAID ==
[~2025-04-18] VITALS: Ht 180.3 cm; Wt 94.5 kg
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
[2025-04-18] MEDS: HYDROcodone-ACET 7.5/325MG TAB PO ONE (12:38)
--- NOTE | 2025-04-18 13:22 | DVH ---
CHEST RADIOGRAPH Indication: trauma Technique: Single frontal view of the chest was obtained Comparison: CT CHEST WO on DOS: 11/03/24, CT CHEST WO on DOS: 08/13/24, XY CHEST TWO VIEWS ROUTINE on DOS: 09/24/22, CHEST TWO VIEWS ROUTINE on DOS: 08/29/20 FINDINGS: Lines and Tubes: None Lungs: No focal consolidation. Pleura: No effusion. No pneumothorax. Cardiomediastinal contours: Unremarkable Bones: No acute osseous abnormality. IMPRESSION: No acute cardiopulmonary disease.
--- NOTE | 2025-04-18 13:27 | DVH ---
EXAM: CT LS SPINE WO CONTRAST HISTORY: Fall, pain COMPARISON: LUMBAR SPINE LTD on DOS: 10/23/20 CTDIvol 33.53 mGy, DLP 1064.58 mGy*cm. TECHNIQUE: Multiple axial CT images of the spine were obtained using bone algorithm. Axial and coronal reformatting was done. Bone and soft tissue windows were reviewed. FINDINGS: There are acute mild compression fractures of T12 and L1 superior endplates with 10% height loss. No retropulsion into the spinal canal. Mild disc bulges at L3-4, L4-5, and L5-S1. There is facet arthropathy at L3-4, L4-5, and L5-S1. No severe spinal canal or foraminal stenoses. The SI joints are unremarkable. Nonobstructing right nephrolithiasis measuring 3-4 mm. IMPRESSION: Acute mild compression fractures of T12 and L1 superior endplates with 10% height loss. Nonobstructing right nephrolithiasis
[2025-04-18 14:24] LABS: Hematocrit 42.8 % (41.0-53.0); Hemoglobin 14.0 g/dL (13.5-17.5); Mean Corpuscular Hemoglobin 27.7 pg (28.0-32.0); Mean Corpuscular Volume 84.6 fL (80.0-100.0); Nucleated Red Blood Cells % 0.2 %
[2025-04-18 14:30] LABS: Chloride 104 mmol/L (98-107); Potassium 3.9 mmol/L (3.5-5.1); Sodium 143 mmol/L (136-145)
[2025-04-18 14:31] LABS: Anion Gap 8 (5-15); Calcium 9.2 mg/dL (8.7-10.4); Carbon Dioxide 31 mmol/L (20-31)
[2025-04-18 14:36] LABS: BUN/Creatinine Ratio 10.9 (10.0-20.0); Blood Urea Nitrogen 15 mg/dL (9-23); Glucose 96 mg/dL (74-106)
[2025-04-18] MEDS ORDERED: ACETAMINOPHEN 325 MG TAB PO PRN (14:45)
--- NOTE | 2025-04-18 14:49 | DVHHP2 ---
History of Present Illness History of Present Illness This is a 55-year-old male with past medical history of schizoaffective disorder, bipolar disorder, and hypertension who presents with neck and low back pain. Three weeks ago he fell from a ladder while placing pictures and struck his head on a piece of furniture before falling to the floor; per , he lost consciousness for approximately 30 minutes and was intermittently responsive until EMS arrived, but he declined transport at that time. Since then he has had persistent neck and low back pain with intermittent numbness and tingling, prompting ED evaluation today. Lumbar imaging showed acute mild compression fractures at T12 and L1, cervical CT showed no acute fracture, and head CT was negative for intracranial bleeding. He reports no current neurologic deficits and denies bowel or bladder incontinence. He is otherwise asymptomatic. Past Medical History PAST MEDICAL HISTORY: schizoaffective disorder, bipolar disorder, and hypertension Surgical History: Denies all surgeries Social History Smoker: Non-Smoker, Quit Greater Than 1 Year Alcohol: Denies ETOH Use Drugs: Denies Drug Use Lives In: Home Review of Systems Review of Systems He denies fever, chills, headache, visual changes, chest pain, dyspnea, palpitations, abdominal pain, nausea, vomiting, urinary symptoms, bowel or bladder incontinence, saddle anesthesia, and lower extremity weakness. Allergies: Coded Allergies: Diphenhydramine (Verified Adverse Reaction, Mild, Restless legs and irritability, 10/05/22) Medications Current Medications Medications Dose Ordered Sig/Álvaro Route Start Time Stop Time Status Last Admin Dose Admin Acetaminophen 650 mg Q6HP PRN PO 04/18/25 14:45 Acetaminophen/ Hydrocodone Bitart 1 tab Q4HP PRN PO 04/18/25 15:45 Exam Vital Signs Vital Signs Date Time Temp Pulse Resp B/P (MAP) Pulse Ox O2 Delivery O2 Flow Rate FiO2 04/18/25 14:08 97.8 75 17 122/87 (99) 98 97.8 Exam General: Alert, cooperative, in mild distress due to pain. Vitals: Normal on presentation. HEENT: Normocephalic, atraumatic. Neck: Midline cervical tenderness to palpation; no step-offs. Full range of motion limited by pain. CV: Regular rate and rhythm. Resp: Clear to auscultation bilaterally. Abdomen: Soft, nondistended, nontender. Back: Midline tenderness over thoracolumbar spine; no deformity. Neuro: Alert and oriented; cranial nerves intact; strength 5/5 in all extremities, sensation intact throughout, normal reflexes; gait stable; no focal deficits. Extremities: No edema. Psych: Mood stable, affect appropriate. Labs/Xrays Labs Test 04/18/25 14:09 Range/Units White Blood Count 11.7 H 4.4-10.8 10^3/uL Red Blood Count 5.06 4.5-5.90 10^6/uL Hemoglobin 14.0 13.5-17.5 g/dL Hematocrit 42.8 41.0-53.0 % Mean Corpuscular Volume 84.6 80.0-100.0 fL Mean Corpuscular Hemoglobin 27.7 L 28.0-32.0 pg Mean Corpuscular Hemoglobin Concent 32.7 32.0-36.0 g/dL Red Cell Distribution Width 14.8 H 11.8-14.3 % Platelet Count 195 140-450 10^3/uL Mean Platelet Volume 7.6 6.9-10.8 fL Neutrophils (%) (Auto) 80.3 H 37.0-80.0 % Lymphocytes (%) (Auto) 12.0 10.0-50.0 % Monocytes (%) (Auto) 6.0 0.0-12.0 % Eosinophils (%) (Auto) 1.2 0.0-7.0 % Basophils (%) (Auto) 0.5 0.0-2.0 % Neutrophils # (Auto) 9.4 H 1.6-8.6 10 ^3/uL Lymphocytes # (Auto) 1.4 0.4-5.4 10 ^3/uL Monocytes # (Auto) 0.7 0-1.3 10 ^3/uL Eosinophils # (Auto) 0.1 0-0.8 10 ^3/uL Basophils # (Auto) 0.1 0-0.2 10 ^3/uL Nucleated Red Blood Cells 0.2 % Sodium Level 143 136-145 mmol/L Potassium Level 3.9 3.5-5.1 mmol/L Chloride Level 104 98-107 mmol/L Carbon Dioxide Level 31 20-31 mmol/L Anion Gap 8 5-15 Blood Urea Nitrogen 15 9-23 mg/dL Creatinine 1.38 H 0.700-1.30 mg/dL Glomerular Filtration Rate Calc 60 >90 mL/min BUN/Creatinine Ratio 10.9 10.0-20.0 Serum Glucose 96 74-106 mg/dL Calcium Level 9.2 8.7-10.4 mg/dL C-Reactive Protein High Sensitivity 2.99 H <1.0 mg/dL SEPSIS Sepsis Screen Date sepsis recognized/suspect: Apr 18, 2025 Time Sepsis recognized/suspect: 1133 Recent Procedure: No On Antibiotic Therapy: No Respiratory Rate >20: No Heart Rate >90: No Temp<36 C (96.8 F) or >38.3 C: No SBP <90 or MAP <65 mmHG: No New Acute Mental Status Change: No Is the patient on CPAP, BIPAP,: No Physician Orders Ls Spine Wo Contrast (04/18/25 12:15) Chest Xray 1 View (04/18/25 12:15) Erythrocyte Sedimentation Rate (04/18/25 13:56) Admit (04/18/25 14:36) Code Status (04/18/25 14:36) Vital Signs .PER UNIT PROTOCOL (04/18/25 14:36) Review Orders With Adm.Md (04/18/25 14:36) Regular Diet (04/18/25 Dinner) Acetaminophen Tablet (Tylenol Tablet) (04/18/25 14:45) Notify Md Of Changes From Base (04/18/25 14:36) Advance Directive (04/18/25 14:36) Patient Condition (04/18/25 14:36) Allergies (04/18/25 14:36) Hydrocodone-Acet 5/325mg Tab ([place] 5/32 (04/18/25 15:45) Head Without Contrast (04/18/25 14:36) Ct Head Neck Wo W Contrast (04/18/25 14:36) Urinalysis (04/18/25 14:39) Vital Signs Date Time Temp Pulse Resp B/P (MAP) Pulse Ox O2 Delivery O2 Flow Rate FiO2 04/18/25 14:08 97.8 75 17 122/87 (99) 98 97.8 04/18/25 11:33 97.8 79 14 121/87 97 97.8 Laboratory Tests Test 04/18/25 14:09 White Blood Count 11.7 10^3/uL (4.4-10.8) H Medications Medications Dose Ordered Sig/Álvaro Route Start Time Stop Time Status Last Admin Dose Admin Acetaminophen/ Hydrocodone Bitart 1 tab ONCE ONCE PO 04/18/25 12:15 04/18/25 12:16 DC 04/18/25 12:38 1 TAB Assessment/Plan Assessment/Plan # Mechanical fall Likely mechanical in nature given history of ladder fall while hanging pictures. No ongoing instability or neurologic deficit. Continue pain control with acetaminophen and [place] as needed. Reinforce fall precautions and outpatient follow-up. # Closed compression fracture of T12 vertebra Acute mild compression fracture noted on imaging without neurologic involvement. Analgesia as ordered. Recommend thoracolumbar precautions and referral to outpatient spine surgery for follow-up and management. # Closed compression fracture of L1 vertebra Acute mild L1 compression fracture noted on CT/lumbar, stable with no retropulsion. Continue conservative management with pain control. Outpatient spine evaluation # SIRS without organ dysfunction He meets criteria due to leukocytosis only, with normal vitals and no evidence of end-organ involvement. Monitor clinical course; urinalysis pending to rule out urinary source. No antibiotics unless infection is identified. # Essential hypertension Chronic condition; currently normotensive Continue monitoring. # Schizoaffective disorder, bipolar type Chronic psychiatric condition; patients mood stable today with no acute symptoms. Continue home lamotrigine and quetiapine. Monitor for stability while inpatient. Case discussed with Dr Hale Full code Plan discussed with: Patient, Other (rn) My Orders Orders - YULISA WILLIAMSON RESIDENT Procedure Category Date Status Time Admit ADMIT 04/18/25 Transmitted 14:36 Code Status CODE 04/18/25 Transmitted 14:36 Vital Signs JUNIOR 04/18/25 In Process 14:36 Review Orders With JUNIOR 04/18/25 In Process Adm. 14:36 Regular Diet DIET 04/18/25 Transmitted Dinner Acetaminophen Tablet PHA 04/18/25 In Process (Tylenol Tablet) 14:45 Notify Of Changes JUNIOR 04/18/25 In Process From Base 14:36 Advance Directive JUNIOR 04/18/25 In Process 14:36 Patient Condition ORDERS 04/18/25 Transmitted 14:36 Allergies JUNIOR 04/18/25 In Process 14:36 Hydrocodone-Acet PHA 04/18/25 In Process 5/325mg Tab ([place] 15:[address] 04/18/25 Logged 14:36 Ct Head Neck Wo W CT 04/18/25 Logged Contrast 14:36 Urinalysis LAB 12/2/25 Logged 14:39 Date of Service: Apr 18, 2025 Billing Provider: RAYSA HALE MD Common Visit Codes: [id number] INP/OBS CARE (HIGH) YULISA WILLIAMSON RESIDENT Apr 18, 2025 14:49
[2025-04-18] MEDS: ONDANSETRON HCL 4 MG/2 ML VIAL ONE (15:13)
[2025-04-18] MEDS: MORPHINE SULFATE 4 MG/ML SYR/VIAL IV ONE (15:14)
[2025-04-18] MEDS: ONDANSETRON HCL 4 MG/2 ML VIAL IV ONE (15:15)
[2025-04-18] MEDS ORDERED: HYDROcodone-ACET 5/325MG TAB PO PRN (15:45)
[2025-04-18] MEDS: HYDROmorphone HCL 2 MG/ML VL/or syr IV ONE (16:02)
--- NOTE | 2025-04-18 16:22 | DVH ---
EXAM: CT HEAD WITHOUT CONTRAST INDICATION: head trauma TECHNIQUE: CT of the head without intravenous contrast. Radiation Dose : 1. Head: CT Dose: CTDI volume is 67.1 mGy. Dose-length product is 1288.06 mGy*cm The dose indicators for CT are the volume Computed Tomography (CT) Dose Index (CTDIvol) and the Dose Length Product (DLP), and are measured in units of mGy and mGy-cm, respectively. These indicators are not patient dose, but values generated from the CT scanner acquisition factors. The report includes radiation exposure data for exposures received during this examination. COMPARISON: HEAD WITHOUT CONTRAST on DOS: 08/30/20 FINDINGS: There is no evidence of acute intracranial hemorrhage, extra-axial collection, mass effect, midline shift, herniation or hydrocephalus. The ventricles, sulci and cisterns are age appropriate. The nunes-white differentiation is intact. Patchy periventricular and subcortical white matter hypoattenuation is nonspecific but may be related to small vessel ischemic disease. Prominent perivascular space in the right basal ganglia. The visualized paranasal sinuses and mastoid air cells are clear. The surrounding soft tissues and osseous structures are unremarkable. IMPRESSION: No acute intracranial abnormality. Radiation optimization: All CT scans at this facility use at least one of these dose optimization techniques: automated exposure control mA and/or kV adjustment per patient size (includes targeted exams where dose is matched to clinical indication) or iterative reconstruction.
--- NOTE | 2025-04-18 16:27 | DVH ---
EXAM: CT CERVICAL WITHOUT CONTRAST INDICATION: Head and neck trauma EXAM DATE: 04/18/2025 03:28 PM COMPARISON: None TECHNIQUE: Multiple axial CT images of the cervical spine were obtained using bone algorithm. Sagittal and coronal reformatting was done. Bone and soft tissue windows were reviewed. Radiation Dose Information: CT Dose: CTDI volume is 24.7 mGy. Dose-length product is 585.7 mGy*cm FINDINGS: The cervical alignment is intact. The curvature is maintained. No acute cervical spine fracture is identified. The vertebral body heights are intact. No suspicious osseous lesions are identified. Multilevel intervertebral disc space narrowing noted. There is no significant spinal stenosis. Multilevel neural foraminal stenosis is noted. There is no prevertebral soft tissue swelling. Multinodular thyroid. Lung apices are clear. IMPRESSION: 1. No evidence of acute cervical spine fracture or traumatic malalignment. 2. Multilevel degenerative changes of the cervical spine. 3. Multinodular thyroid.
[2025-04-18] MEDS ORDERED: SODIUM CHLORIDE 0.9% 1,000 ML IV SCH (17:00)
[2025-04-18 20:13] VITALS: BP 127/93; PULSE 68; RESP 17; TEMP 97.8; O2SAT 97
[2025-04-19] MEDS ORDERED: lamoTRIgine 100 MG TAB PO SCH (10:00)
== END 2025-04-18 21:15 | disposition left against medical advice (07) | DRG 347 ==
LOC: ER 11:31 → OVERFLOW 14:36 → UNDODISIN 21:15
PROVIDERS: ATTEND Internal Medicine
DX: M48.54XA Collapsed vertebra, not elsewhere classified, thoracic region, initial encounter for fracture (principal); F25.0 Schizoaffective disorder, bipolar type; R65.10 Systemic inflammatory response syndrome (SIRS) of non-infectious origin without acute organ dysfunction; I10 Essential (primary) hypertension; M48.55XA Collapsed vertebra, not elsewhere classified, thoracolumbar region, initial encounter for fracture; M48.56XA Collapsed vertebra, not elsewhere classified, lumbar region, initial encounter for fracture; M54.16 Radiculopathy, lumbar region; Z53.29 Procedure and treatment not carried out because of patient's decision for other reasons; N20.0 Calculus of kidney; Z88.8 Allergy status to other drugs, medicaments and biological substances; Z87.442 Personal history of urinary calculi; Z87.891 Personal history of nicotine dependence
CPT/HCPCS: 36415; 70450; 71045; 72125; 72131; 80048; 85025; 85652; 86141; G0378; J2405